=== PATIENT | male | born 2000 ===

== ENCOUNTER 2021-07-26 18:30 | Inpatient (IN) ==
[2021-07-26 22:15] LABS: ABS Eosinophils 0.1 10^3/ul (0-0.6); ABS Lymphocytes 2.7 10^3/ul (1.0-4.8); ABS Monocytes 0.6 10^3/ul (0-0.8); ABS Neutrophils 5.6 10^3/ul (1.5-7.7); Eosinophil % 1.3 %; Hematocrit 38 % (42-52); Hemoglobin 12.8 g/dL (14.0-18.0); Lymphocyte % 30.2 %; Mean Corpuscular HGB Conc 34 g/dL (31-36); Mean Corpuscular Hemoglobin 29 pg (27-31); Mean Corpuscular Volume 87 fL (80-94); Nucleated Red Blood Cells % 0.1; Platelet Count 258 10^3/uL (150-450); Red Blood Count 4.38 10^6 /uL (4.18-5.48); Red Cell Distribution Width 13 % (10-15)
[2021-07-26 22:34] LABS: ALT 10 U/L (7-52); AST 19 U/L (13-39); Albumin/Globulin Ratio 1.8 (1-3); Alkaline Phosphatase 63 U/L (35-149); Anion Gap 6 mmol/L (2-11); Blood Urea Nitrogen 12 mg/dL (6-24); CO2 Carbon Dioxide 25 mmol/L (22-32); Calcium 8.8 mg/dL (8.6-10.3); Chloride 107 mmol/L (101-111); Creatine Kinase 365 U/L (10-223); EGFR Non-African American 116.5 (>60); Globulin 2.2 g/dL (2-4); Glucose 84 mg/dL (70-100); Potassium 3.3 mmol/L (3.5-5.0); Sodium 138 mmol/L (135-145); Total Protein 6.2 g/dL (6.4-8.9)
[2021-07-26] MEDS ORDERED: Potassium Chlor 20 meq TAB.ER PO ONE (22:58)
[2021-07-26 23:37] LABS: Acetaminophen < 15 mcg/mL; Alcohol, S < 13 mg/dL (<13); Salicylate < 2.50 mg/dL (<30); Valproic Acid < 13.0 mcg/mL (50-100)
[2021-07-26] MEDS ORDERED: D5W IV SCH (23:45)
[2021-07-26] MEDS ORDERED: POTASSIUM CHLORIDE IV SCH (23:45)
[2021-07-26 23:52] LABS: TSH Ultra Thyroid Stim Horm 7.59 mcIU/mL (0.34-5.60)
[2021-07-27] MEDS ORDERED: DEXTROSE IV SCH (00:15)
[2021-07-27] MEDS ORDERED: POTASSIUM CHLORIDE IV SCH (00:15)
[2021-07-27 00:30] LABS: Urine Appearance Turbid; Urine Bilirubin Negative (Negative); Urine Blood 1+ (Negative); Urine Color Amber; Urine Glucose Negative (Negative); Urine Ketones Trace (Negative); Urine Nitrite Negative (Negative); Urine Protein Negative (Negative); Urine Specific Gravity 1.016 (1.002-1.030); Urine Urobilinogen Negative (Negative)
[2021-07-27 00:37] LABS: Urine Amorphous Crystals Present (Absent); Urine Bacteria Absent (Absent); Urine Red Blood Cell Absent (Absent); Urine White Blood Cell Absent (Absent)
[2021-07-27 00:42] LABS: Urine Benzodiazepine Screen None Detected (None Detect); Urine Cannabinoids Screen None Detected (None Detect); Urine Opiates Screen None Detected (None Detect)
[2021-07-27] MEDS ORDERED: Potassium Chloride IV 40 MEQ in D5W 1000 ml BAG 980 ML IVPB SCH (04:30)
[2021-07-27 05:51] LABS: ABS Eosinophils 0.1 10^3/ul (0-0.6); ABS Lymphocytes 2.3 10^3/ul (1.0-4.8); ABS Monocytes 0.6 10^3/ul (0-0.8); ABS Neutrophils 4.4 10^3/ul (1.5-7.7); Eosinophil % 1.9 %; Hematocrit 40 % (42-52); Hemoglobin 13.6 g/dL (14.0-18.0); Lymphocyte % 30.6 %; Mean Corpuscular HGB Conc 34 g/dL (31-36); Mean Corpuscular Hemoglobin 30 pg (27-31); Mean Corpuscular Volume 87 fL (80-94); Mean Platelet Volume 8.3 fL (7.4-10.4); Platelet Count 269 10^3/uL (150-450); Red Blood Count 4.59 10^6 /uL (4.18-5.48); Red Cell Distribution Width 13 % (10-15); White Blood Count 7.4 10^3/uL (3.5-10.8)
[2021-07-27 06:15] LABS: Calcium 8.8 mg/dL (8.6-10.3); EGFR Non-African American 116.5 (>60); Potassium 3.8 mmol/L (3.5-5.0)
[2021-07-27] MEDS ORDERED: Al Hydrox/Mg Hydrox/Simet LIQ 30 ML UDC PO PRN (12:28)
[2021-07-27] MEDS ORDERED: Lorazepam PYXIS KEY PRN (12:30)
[2021-07-27] MEDS ORDERED: LORazepam 2 mg VIAL 1 ml IM PRN (12:30)
[2021-07-28] MEDS: Nicotine GUM 2MG FRUIT FLAVOR PO PRN ×3 (08:24→14:23)
[2021-07-28 08:47] LABS: HDL Cholesterol 50.4 mg/dL
[2021-07-28] MEDS: CMCS: guanFACINE 1 mg TAB (NF) PO SCH (19:45)
[2021-07-28 23:35] LABS: Free Valproic Acid <3 mcg/mL (5 - 25); Total Valproic Acid <3 mcg/mL (50 - 125)
[2021-07-29] MEDS: Nicotine GUM 2MG FRUIT FLAVOR PO PRN ×2 (08:39→14:12)
[2021-07-29] MEDS: CMCS: guanFACINE 1 mg TAB (NF) PO SCH (21:49)
[2021-07-30] MEDS: Nicotine GUM 2MG FRUIT FLAVOR PO PRN (08:31)
[2021-07-30] MEDS: CMCS: guanFACINE 1 mg TAB (NF) PO SCH (20:37)
[2021-07-31] MEDS: CMCS: guanFACINE 1 mg TAB (NF) PO SCH (21:51)
[2021-08-01] MEDS: Nicotine GUM 2MG FRUIT FLAVOR PO PRN (11:45)
[2021-08-01] MEDS: CMCS: guanFACINE 1 mg TAB (NF) PO SCH (19:45)
[2021-08-02] MEDS: CMCS: guanFACINE 1 mg TAB (NF) PO SCH (20:41)
[2021-08-03] MEDS: Nicotine GUM 2MG FRUIT FLAVOR PO PRN ×2 (13:21→17:21)
[2021-08-03] MEDS: CMCS: guanFACINE 1 mg TAB (NF) PO SCH (20:37)
[2021-08-04] MEDS: CMCS: guanFACINE 1 mg TAB (NF) PO SCH (20:27)
[2021-08-05] MEDS: CMCS: guanFACINE 1 mg TAB (NF) PO SCH (20:55)
[2021-08-06] MEDS: CMCS: guanFACINE 1 mg TAB (NF) PO SCH (21:21)
[2021-08-07] MEDS: CMCS: guanFACINE 1 mg TAB (NF) PO SCH (19:55)
[2021-08-08 07:42] VITALS: BP 113/64
== END 2021-08-08 12:00 | disposition home or self-care (01) | DRG 753 ==
LOC: ED 18:30 → MED 18:30 → SUATTDRO 23:57 → MED 07-27 03:28 → BSU 07-27 16:56
PROVIDERS: ADMIT Internal Medicine; ATTEND Internal Medicine